=== PATIENT | male | born 1990 | race Two or more races ===

== ENCOUNTER → 2024-07-21 | Outpatient (BNVA) | payer BC, SELFPAY | END | disposition home or self-care (01) | PROVIDERS: PCP Family Medicine; Referring Provider Family Medicine; Visit Provider Urology | DX: Z30.2 Encounter for sterilization (principal); N40.0 Benign prostatic hyperplasia without lower urinary tract symptoms | CPT/HCPCS: 81003; 99212; G0463 ==

== ENCOUNTER 2024-09-03 06:45 | Day surgery (SDC) | payer BC, SELFPAY ==
[2024-09-02 14:28] VITALS: BMI 30.9
[2024-09-03] VITALS (7 sets, daily range): BP systolic 100–136; BP diastolic 56–87; PULSE 68–83; RESP 12–20; TEMP 36.2–36.4; O2SAT 97–100; BMI 29.7
[2024-09-03] MEDS: RINGERS LACTATED 1000 ML 1,000 ML 20 ML IV (07:15)
--- NOTE | 2024-09-03 09:20 | SUR.PHASEI ---
pt received from OR in recovery bay 1. pt obtunded, breathing unlabored on oxymask 8l, oral airway in place. v/s stable. pt dressing to scrotum cdi. report received from Sonu De La O and Dr. Ibrahim.
--- NOTE | 2024-09-03 09:26 | PD.SUROPNT ---
Date of Procedure 09/03/24 Pre Op Diagnosis Elective sterilization Post Op Diagnosis Same Procedure Bilateral vasectomy Findings Bilateral vas Procedure Description This is [id number] male came for bilateral vasectomy procedure and complications were discussed with patient in great detail informed consent was obtained patient understood very well there is no warranty for permanent sterilization. Literature regarding bilateral vasectomy was provided to the patient procedure patient was brought to the operating room in a satisfactory condition after appropriate premedication was put on the operating table in a supine position he was appropriately identified by surgeon and operating room staff, general anesthesia was given uneventfully parts were prepped and draped in a usual sterile fashion. Next the right vas deferens was palpated between 2 fingers and a thumb 2% lidocaine with quarter percent Marcaine was instilled appropriately vertical skin incision was made proper hemostasis was secured. Next the vas deferens was brought into the incision it was from its various fascial coverings between 2 silver clips centimeter of the vas deferens was excised. The lumen of the vas deferens was diathermized with coagulation diathermy distal end of the vas deferens was buried between various fascial layers. Skin was approximated with 3-0 chromic. Similar procedure was repeated on the opposite side. Next this sterile dressings were applied. Pressure bandage was given Patient having tolerated the procedure well and was sent to recovery room in a satisfactory condition to be discharged home with full postoperative instructions were verbally as well as in writing to be followed in urology office in 6 weeks' time. Pathology / specimen Other (Right vas) Estimated Blood Loss 0.2 Condition Stable Disposition PACU Surgeon Yanira Meneses MD Surgical Staff Operation Date: 09/03/24 08:45 Case Staff Anesthesiologist: Giovany Ibrahim
--- NOTE | 2024-09-03 09:38 | SUR.PHASEI ---
pt able to toelrate oral fluids without difficulty swallowing or nausea/vomiting.
[2024-09-03] MEDS: ONDANSETRON INJ 2 MG/ML INJ 2 ML 4 MG IV (09:54)
--- NOTE | 2024-09-03 10:35 | SUR.PHASEII ---
pt awake and alert, breathing unlabored on room air. v/s stable. pt dressing to scrotum cdi. pt able to ambulate to wheelchair with steady gait. d/c instructions given with s/o Sabina in room, all questions answered. pt d/c via wheelchair with all belongings.
== END 2024-09-03 10:35 | disposition home or self-care (01) ==
PROVIDERS: PCP Family Medicine; Referring Provider Urology; Visit Provider Urology
PROC: (CPT 55250; principal; 2024-09-03 08:30)
DX: Z30.2 Encounter for sterilization (principal)
CPT/HCPCS: 55250; A4217; A4649; J1885; J2250; J2405; J2704; J2765; J3010; J3490; J7120; A9270; J0665

== ENCOUNTER → 2024-09-16 | Outpatient (BNVA) | payer BC, SELFPAY | END | disposition home or self-care (01) | PROVIDERS: PCP Family Medicine; Referring Provider Family Medicine; Visit Provider Urology | DX: Z51.89 Encounter for other specified aftercare (principal) | CPT/HCPCS: 81003; 99212; G0463 ==

== ENCOUNTER → 2024-12-19 | Outpatient (CLI) | payer BC, SELFPAY ==
[2024-12-19 16:43] LABS: Post Vasectomy Sperm Presence No Spermatozoa Seen (No Sperm)
== END | disposition home or self-care (01) ==
LOC: SLDO 15:50
PROVIDERS: Referring Provider Urology; Visit Provider Urology
DX: Z30.2 Encounter for sterilization (principal)
CPT/HCPCS: 89321